=== PATIENT | male | born 1945 | race Caucasian/White ===

== ENCOUNTER → 2016-07-31 | Day surgery (SDC) | payer OTHER, MEDICARE ==
[~2016-07-31] VITALS: Ht 177.8 cm; Wt 113.4 kg
[~2016-07-31] MED LIST: ASPIRIN EC81 M1 PO; AUGMENTIN 500-1 EACH PO; COZAAR50 M1 PO; GLIMEPIRIDE2 MG PO; METFORMIN HCL500 M3 PO; MULTI-DAY VITA1 EACH PO; PRAVACHOL40 M1 PO; PRAVACHOL80 M1 PO; PRILOSEC OTC20 M1 PO; SPIRIVA18 MCG INH; VITAMIN D31000 UNI1 PO
--- NOTE | 2016-07-31 11:51 | Operative Report ---
Operative/Inv Procedure Report Surgery Date: 07/31/16 Name of Procedure: cysto: TURBT: mitomycin instillation in bladder Pre-Operative Diagnosis: bladder cancer Post-Operative Diagnosis: same Estimated Blood Loss: less than 50ml Surgeon/Livestock Exhibitor: MARC RAE MD Anesthesia: laryngeal mask airway Drains: 18fr mercer. Specimens: bladder tumor Complications: none Operative/Procedure Note Note: The patient was taken to the operating room, and placed on the OR table in supine position. Timeout was performed, with the patient awake, to confirm correct patient, procedure, anesthesia, antibiotics, and other pertinent leidy- operative information. After adequate anesthesia and antibiotics, the patient was then placed in lithotomy stirrups, draped and prepped in usual surgical fashion. A 26 Camb[place]ian resectoscope sheath with a 30 angle lens, and 24 Cambodian loop, was inserted into the urethra, and advanced into the bladder without difficulty. Upon entering the bladder, the bladder was noted to be mildly trabeculated. Both ureteral orifices were in their orthotopic position, with clear reflux bilaterally. A solitary 1 Cm papillary lesion was visualized on the anterior bladder, consistent with tumor. No other tumors were seen on thorough and systematic surveillance. Under direct visualization, this 1 cm papillary lesion was resected from superficial to deeper layers, including partial detrusor muscle base resection. The entire tumor was removed, along with a 0.5 cm margin of normal mucosa. The tumor fragments were evacuated, and sent to pathology. Cauterization of the base of the tumor resection was performed, in order to achieve good hemostasis. The bladder was copiously irrigated once again with 3 L of sorbitol. The resectoscope was removed leaving the bladder full. The bladder was drained by placing a 18 Camb[place]ian Mercer catheter , without difficulty, and with clear fluid. 10 mL of sterile water was placed in the balloon, and the Mercer catheter was plugged after complete decompression of the bladder. The patient tolerated procedure well was then taken to recovery room in satisfactory condition. In the recovery room, Mitomycin 40mg in 40cc sterile saline, was instilled into the bladder using the indwelling 16fr catheter. The Mercer was clamped, for one hour, with the pt turned from [id number] every 15minutes, during mitomycin instillation. The patient tolerated this part of the procedures well, the catheter was removed for the patient to void. The patient tolerated both procedures well and discharged withpain meds, and antibiotics. The patient is scheduled for follow-up in the office in 1-2 weeks time. Discharge Disposition: PACU CC: MARC RAE MD
== END ==
LOC: STS 07-24 07:00
DX: C67.9 Malignant neoplasm of bladder, unspecified (principal); N32.89 Other specified disorders of bladder; E11.9 Type 2 diabetes mellitus without complications; Z79.84 Long term (current) use of oral hypoglycemic drugs; I10 Essential (primary) hypertension; Z87.891 Personal history of nicotine dependence
CPT/HCPCS: 88307; J2250; J9280